=== PATIENT | male | born 1980 | race Caucasian/White ===

== ENCOUNTER 2018-02-14 09:03 | Emergency (ER) | payer MEDICAID ==
[~2018-02-14] VITALS: Ht 157.5 cm; Wt 75.0 kg
[2018-02-14] MEDS ORDERED: IBUPROFEN 600 MG TABLET PO ONE (11:30)
[2018-02-14 12:08] VITALS: BP 133/72
== END 2018-02-14 12:12 | disposition home or self-care (01) ==
LOC: EMS 09:04
DX: S61.432A Puncture wound without foreign body of left hand, initial encounter (principal); W45.8XXA Other foreign body or object entering through skin, initial encounter; Y93.89 Activity, other specified; Y92.89 Other specified places as the place of occurrence of the external cause; Y99.8 Other external cause status
CPT/HCPCS: 99284

== ENCOUNTER 2022-09-01 10:56 | Emergency (ER) | payer MEDICAID ==
[~2022-09-01] VITALS: Ht 162.6 cm; Wt 65.9 kg
[2022-09-01 11:07] VITALS: BP 117/72
== END 2022-09-01 13:41 | disposition home or self-care (01) ==
LOC: EMS 10:59
DX: S80.01XA Contusion of right knee, initial encounter (principal); W19.XXXA Unspecified fall, initial encounter; Y93.89 Activity, other specified; Y92.89 Other specified places as the place of occurrence of the external cause; Y99.8 Other external cause status
CPT/HCPCS: 99283